=== PATIENT | female | born 1990 | race Caucasian/White ===

== ENCOUNTER 2019-05-13 16:53 | Outpatient (CLI) | payer OTHER, SELFPAY ==
[2019-05-13 17:18] LABS: Basophils Percent Auto 0.5 % (0.2-1.2); Eosinophils Absolute Auto 0.1 K/mm3 (0-0.3); Eosinophils Percent Auto 2.1 % (0-4.4); Hematocrit 39.4 % (37.0-47.0); Hemoglobin 13.2 g/dL (12.0-15.0); Immature Granulocyte Absolute 0.01 K/mm3 (0.00-0.031); Immature Granulocyte Percent A 0.2 % (0-0.5); Lymphocytes Percent Auto 40.1 % (18.3-44.2); Mean Corpuscular HGB Conc 33.5 g/dl (32-36); Mean Corpuscular Hemoglobin 29.9 pg (26-34); Mean Corpuscular Volume 89.3 fl (80-100); Mean Platelet Volume 11.1 fl (7.4-10.4); Monocytes Absolute Auto 0.7 K/mm3 (0.1-0.6); Monocytes Percent Auto 10.7 % (2.6-8.5); Neutrophils Absolute Auto 2.9 K/mm3 (1.3-6.7); Neutrophils Percent Auto 46.4 % (45.5-73.1); Platelet Count Result 197 k/mm3 (150-375); Red Blood Count 4.41 M/mm3 (4.2-5.4); Red Cell Distribution Width 12.7 % (11.5-14.5); White Blood Count 6.2 K/mm3 (4.5-10.0)
[2019-05-13 17:30] LABS: Alanine Aminotransferase 17 U/L (4-35); Albumin Level 4.6 g/dL (3.5-5.1); Alkaline Phosphatase 48 U/L (38-126); Aspartate Amino Transferase 21 U/L (14-36); Bilirubin,Total 0.4 mg/dL (0.2-1.3); Blood Urea Nitrogen 14 mg/dL (7-17); Calcium 9.1 mg/dL (8.4-10.2); Carbon Dioxide 25 mmol/L (22-30); Chloride 99 mmol/L (98-107); Estimated Glomerular Filt Rate > 60; Glucose 80 mg/dL (65-105); Potassium 3.6 mmol/L (3.4-5.0); Sodium 138 mmol/L (137-145)
[2019-05-13 17:46] LABS: Beta HCG Quantitative < 2.39 mIU/ML
== END 2019-05-13 16:54 | disposition home or self-care (01) ==
LOC: ANHLAB 16:55
PROVIDERS: PCP Family Medicine; Visit Provider Family Medicine
DX: R10.9 Unspecified abdominal pain (principal)
CPT/HCPCS: 36415; 80053; 84702; 85025

== ENCOUNTER 2019-05-27 06:50 | Outpatient (CLI) | payer OTHER, SELFPAY ==
--- NOTE | ~2019-05-27 | CT_ITS ---
EXAMINATION: CT abdomen pelvis w con EXAM DATE: 05/27/2019 07:32 INDICATION: Diffuse abdominal pain, nausea. TECHNIQUE: Spiral CT of the abdomen and pelvis was performed following intravenous injection of 100 m L Omnipaque 350. Axial, coronal and sagittal images were reviewed. The dose-length product (DLP) fo r this examination was 224.34 mGy-cm. The exposure was tailored according to patient size (auto mA e xposure control), and iterative reconstruction (ASIR) was used as additional dose reduction technique . There is no prior study for comparison. FINDINGS: There is a hypodensity in the left liver lobe measuring 1.1 cm consistent with a cyst. The spleen, pancreas, and adrenal glands are unremarkable. Gallbladder is unremarkable. No biliary obs truction. Portal and splenic veins are patent. Kidneys enhance symmetrically. There is no hydronep hrosis. There is IUD which appears to be centrally located within the endometrium, expected positio n. The bladder is unremarkable. There is no retroperitoneal or pelvic lymphadenopathy. Small umbi lical fat-containing hernia. The appendix is normal. The stomach and small bowel are unremarkable. There is expected amount of c olonic stool. No free intraperitoneal gas. The heart is normal in size. There are no pericardial or pleural effusions. The lung bases are unremarkable. There are no osteoblastic or osteolytic les ions identified. IMPRESSION: 1. Unremarkable CT abdomen pelvis examination. Reviewed, dictated and finalized at location B. [employer]
== END 2019-05-27 06:51 | disposition home or self-care (01) ==
LOC: ANHIMG 06:56
PROVIDERS: PCP Family Medicine; Visit Provider Family Medicine
DX: R10.2 Pelvic and perineal pain (principal)
CPT/HCPCS: 74177; Q9967

== ENCOUNTER 2019-08-06 00:25 | Outpatient (CLI) | payer OTHER, SELFPAY ==
[2019-08-06 16:18] LABS: SARS-CoV-2 RNA PCR Negative
== END 2019-08-06 00:26 | disposition home or self-care (01) ==
PROVIDERS: PCP Family Medicine; Visit Provider Internal Medicine Gastroenterology
DX: Z01.818 Encounter for other preprocedural examination (principal); Z11.59 Encounter for screening for other viral diseases; R10.32 Left lower quadrant pain
CPT/HCPCS: 87635; C9803; U0003

== ENCOUNTER 2019-08-09 00:32 | Day surgery (SDC) | payer OTHER, SELFPAY ==
[2019-08-04 13:01] VITALS: BMI 23.3
[2019-08-09 07:16] VITALS: BP 131/83; PULSE 95; RESP 16; TEMP 37.3; O2SAT 99; BMI 22.8
[2019-08-09] MEDS: LACTATED RINGERS 1,000 ML 150 ML IV CONT (07:33)
--- NOTE | 2019-08-09 08:20 | P.PNAN_ITS ---
Anes - Initial Pre Proc Eval Procedure: Operation Date: 08/09/19 09:00 Proposed Procedures p Colonoscopy - Abran Soriano MD Date/Time: 08/09/19 08:20 Surgeon: Abran Soriano MD Pre Op Diagnosis: Abdomin Pain Patient Data Age: 28 Gender: F Height: 5 ft 2 in Weight: 56.5 kg Last Vital Signs Temp 37.3 C 08/09/19 07:16 Pulse 95 08/09/19 07:16 Resp 16 08/09/19 07:16 BP 131/83 08/09/19 07:16 Pulse Ox 99 08/09/19 07:16 Allergies Allergy/AdvReac Type Severity Reaction Status Date / Time No Known Allergies Allergy Verified 08/09/19 07:14 Home Medications Medication Instructions Recorded Confirmed Type mr-ore-fgojv acid-lutein [Adult 200 tablet PO DAILY 08/04/19 08/09/19 History Multivitamin (w-lutein)] Patient hx anesthesia problems: none Family hx anesthesia problems: none [facility] Social History Social History Smoking status: Never smoker Alcohol intake: current Gender identity (if verbalized by the patient): Female Anes - Eval Final PreProcedure Day of Procedure 08/09/19 08:20 Patient weight: normal Heart: regular rate and rhythm Lungs: clear to auscultation Airway: Mallampati scale class II Neurological: alert and oriented Last oral intake: >/= 8 hours ASA classification: I Emergent: no Anesthetic plan: proceed Anesthesia type and monitoring: general GIVS and standard monitoring Informed Consent: The patient's anesthetic plan and its attendant risks and benefits were discussed with the patient/family/POA. Questions were solicited and answers provided to the satisfaction of the patient/family/POA.
--- NOTE | 2019-08-09 09:07 | PM.HPGS ---
History of Present Illness History of Present Illness Consent: Risks, benefits, and alternatives have been discussed and questions answered. Patient agrees to proceed with procedure. Chief complaint: Abdomin Pain Narrative: Georgina Ovalle is a 28 year old female with lower abdominal pain Review of Systems Constitutional: Constitutional: Denies headache(s) and Denies weakness Eyes: Eyes: Denies blurry vision ENT: Reports Normal hearing present, Denies headache(s) and Denies neck pain Cardiovascular: Cardiovascular: Denies chest pain and Denies dyspnea Respiratory: Respiratory: Denies dyspnea Gastrointestinal: Gastrointestinal: Reports no additional gastrointestinal complaints Genitourinary: Genitourinary: Denies dysuria Musculoskeletal: Musculoskeletal: Denies neck pain Integumentary/Breasts: Skin/Breast: Denies dry skin Neurologic: Reports Normal hearing present, Denies headache(s) and Denies weakness Psychiatric: Psychiatric: Denies anxiety Endocrine: Endocrine: Denies change in body appearance Hematologic/Lymphatic: Hematologic/Lymphatic: Denies easy bleeding Allergic/Immunologic: Allergic/Immunologic: Denies urticaria PMFSH Social History Social History Smoking status: Never smoker Alcohol intake: current Gender identity (if verbalized by the patient): Female Meds Home Medications and Allergies Home Medications Medication Instructions Recorded Confirmed Type mo-ofi-ripdi acid-lutein [Adult 200 tablet PO DAILY 08/04/19 08/09/19 History Multivitamin (w-lutein)] Allergies Allergy/AdvReac Type Severity Reaction Status Date / Time No Known Allergies Allergy Verified 08/09/19 07:14 Vital Signs Vital Signs - 24 hr 08/09/19 07:16 Temperature 99.1 F Pulse Rate 95 Respiratory Rate 16 Blood Pressure 131/83 Pulse Oximetry 99 Exam Const: General: comfortable and no acute distress HENMT: General nose exam: Normal nares present Eyes: General: appearance normal, both eyes and all related structures Neck: Neck: no JVD Resp: Auscultation: clear to auscultation bilaterally Cardio: Rate: regular rate Rhythm: regular rhythm GI: Inspection: non-distended GI Palp: Yes Soft to palpation Skin: General skin exam: normal color Neuro: General: gait normal Speech: normal speech Extrem: General: normal to inspection Psych: Mental Status: mental status grossly normal Assessment and Plan Assessment and plan (1) Abdominal pain: Qualifiers: Abdominal location: left lower quadrant Qualified Code(s): R10.32 - Left lower quadrant pain Code(s): R10.9 - Unspecified abdominal pain Status: Acute Assessment and Plan: wor up thus far negative, will do a colonoscopy
[2019-08-09 09:25] VITALS: BP 110/66; PULSE 76; RESP 20; O2SAT 98
[2019-08-09 09:35] VITALS: BP 112/77; PULSE 69; RESP 17; O2SAT 100
[2019-08-09 09:45] VITALS: BP 111/78; PULSE 64; RESP 18; O2SAT 99
== END 2019-08-09 09:51 | disposition home or self-care (01) ==
PROVIDERS: PCP Family Medicine; Visit Provider Internal Medicine Gastroenterology
PROC: 0DJD8ZZ Inspection of Lower Intestinal Tract, Via Natural or Artificial Opening Endoscopic (ICD-10-PCS; CPT 45378; principal; 2019-08-09 09:00)
DX: R10.32 Left lower quadrant pain (principal)
CPT/HCPCS: 45378; J2704; J7120

== ENCOUNTER 2021-11-21 15:51 | Emergency (ER) | payer OTHER, SELFPAY ==
--- NOTE | ~2021-11-21 | CT_ITS ---
EXAMINATION: CT abdomen pelvis w con DATE: 11/21/2021 17:42 INDICATION: Abdominal pain. Nonreducible umbilical hernia. TECHNIQUE: Computed tomography (CT) of the abdomen and pelvis was performed with 100 mL Omnipaque-350 intravenous contrast. Automated exposure control and iterative reconstruction technique were employe d. The dose-length product was 244.35 mGy-cm. COMPARISON: 05/27/2019 FINDINGS: Lung bases are clear. Heart size is normal. No pericardial or pleural effusion. 1.5 cm cyst in the le ft hepatic lobe. Gallbladder, spleen, pancreas, bilateral adrenal glands and kidneys are normal. Inte rval increase in size of a previously 1.4 x 1.3 x 1.2 cm now 2.2 x 1.6 x 1.9 cm fat-containing umbili reinier hernia which extends to a 4 mm diameter orifice. Bowels including the appendix are normal. Bladde r is normal. T-shaped IUD in expected position within the anteverted uterus. 2.5 is 0.9 cm peripheral ly enhancing likely partially collapsed corpus luteum cyst at the left ovary. Right adnexa is unremar kable. Small amount of likely physiologic free fluid in the cul-de-sac. No abscess or free intraperit quiroga gas. No pathologically enlarged abdominal or pelvic lymphadenopathy. Bones are unremarkable. . IMPRESSION: 1. Interval increase in size of a still small fat-containing umbilical hernia. 2. Partially collapsed left ovarian corpus luteum cyst and small amount of likely physiologic free fl uid in the cul-de-sac. 2. IUD in expected position. Reviewed, dictated and finalized at location A. IMPRESSION: 1. Interval increase in size of a still small fat-containing umbilical hernia. 2. Partially collapsed left ovarian corpus luteum cyst and small amount of like ly physiologic free fluid in the cul-de-sac. 2. IUD in expected position.
[2021-11-21 15:57] VITALS: BP 177/99; PULSE 67; RESP 16; TEMP 36.6; O2SAT 100
--- NOTE | 2021-11-21 16:10 | ED.ABDPAIN ---
HPI - Abdominal Pain General Chief Complaint: Abdominal Pain Stated Complaint: abd pain Time Seen by Provider: 11/21/21 15:54 History of Present Illness HPI narrative: 31-year-old female presented the emergency room complaints of umbilical pain. Patient states that she has had reducible umbilical hernia for the last 2 months, but recently has been unable to reduce it. Patient is also complaining of nausea fatigue and headaches. Patient states that she has bowel movements approximately every other day. Admits to flatulence. Denies fever diarrhea. States that she had a colonoscopy several months ago and it was normal Related Data Home Medications Medication Instructions Recorded Confirmed multivit with min-folic 200 tablet PO DAILY 08/04/19 07/03/21 acid-lutein 200 mcg-137.5 mcg chewable tablet (Adult Multivitamin (w-lutein)) acetaminophen-pamabrom 500 mg-25 1 tablet PO Q6H PRN 11/21/21 mg tablet (Midol) Allergies Allergy/AdvReac Type Severity Reaction Status Date / Time No Known Allergies Allergy Verified 11/21/21 13:00 Review of Systems Review of Systems: CONSTITUTIONAL: Denies fever, chills, or sweats. EYES: Denies visual changes, redness, or discharge. ENT: Denies rhinorrhea, congestion, sore throat, or otalgia. CARDIOVASCULAR: Denies chest pain, palpitations, or edema. RESPIRATORY: Denies cough or dyspnea. GASTROINTESTINAL: Reports abdominal pain, nausea GENITOURINARY: Denies dysuria or hematuria. SKIN: Denies rash or itching. MUSCULOSKELETAL: Denies back pain, joint pain, or myalgia. NEUROLOGIC: Denies headache, numbness, dizziness, or weakness. PSYCHIATRIC: Denies anxiety or depression. [facility] Social History Social History Smoking status: Never smoker Second hand tobacco smoke exposure: No Alcohol intake: current Drinks per week: 2 Substance use: never Substance use type: does not use Gender identity (if verbalized by the patient): Female Spiritual care concerns: No Agree to blood products: Yes Exam Narrative: GENERAL: Well-appearing, well-nourished, no physical limitations, and in no acute distress. HEAD: Normocephalic, atraumatic. EYES: Conjunctivae normal, PERRLA and EOMI. CHEST: Clear to auscultation. No respiratory distress. No wheezes rales or rhonchi. No tenderness. HEART: Regular rate and rhythm. No murmur heard. Normal peripheral pulses. ABDOMEN: Soft, nontender, nondistended, normal active bowel sounds. Nonreducible umbilical hernia BACK: No CVA tenderness; EXTREMITIES: Normal range of motion. No edema. No clubbing or cyanosis SKIN: Warm, dry, no rash. No noted wounds NEURO: No focal deficits. Alert and oriented x3. MAEW. CN's II-XI intact bilaterally, normal gait PSYCH: Cooperative. Normal mood and affect. Course Course Emergency Course: 1645: MD Franz at bedside to evaluate patient. He is willing to see patient in his office next week. Vital Signs Vital signs: Vital Signs Temperature 36.6 C 11/21/21 15:57 Pulse Rate 67 11/21/21 15:57 Respiratory Rate 16 11/21/21 15:57 Blood Pressure 177/99 H 11/21/21 15:57 Pulse Oximetry 100 11/21/21 15:57 Oxygen Delivery Room Air 11/21/21 15:57 Temperature 36.6 C 11/21/21 15:57 Pulse Rate 67 11/21/21 15:57 Respiratory Rate 16 11/21/21 15:57 Blood Pressure 177/99 H 11/21/21 15:57 Pulse Oximetry 100 11/21/21 15:57 Oxygen Delivery Room Air 11/21/21 15:57 MDM - Abdominal Pain MDM Narrative Medical decision making narrative: 31-year-old female came in with abdominal pain, sent in from her primary care for evaluation of an umbilical hernia. CT scan showed a fat-containing umbilical hernia. Remainder of her work-up was unremarkable. Dr. Franz was at the bedside to evaluate the patient, and he discussed with the patient to follow-up with his office next week. Lab Data Labs: [facility] Bedside Result Neg
[2021-11-21 16:19] LABS: Basophils Percent Auto 0.4 % (0.2-1.2); Eosinophils Absolute Auto 0.2 K/mm3 (0-0.3); Eosinophils Percent Auto 2.1 % (0-4.4); Hematocrit 43.2 % (37.0-47.0); Hemoglobin 14.5 g/dL (12.0-15.0); Immature Granulocyte Absolute 0.02 K/mm3 (0.00-0.031); Immature Granulocyte Percent A 0.3 % (0-0.5); Lymphocytes Absolute Auto 2.26 K/mm3 (0.9-3.2); Lymphocytes Percent Auto 31.3 % (18.3-44.2); Mean Corpuscular HGB Conc 33.6 g/dl (32-36); Mean Corpuscular Hemoglobin 30.2 pg (26-34); Mean Platelet Volume 10.5 fl (7.4-10.4); Monocytes Absolute Auto 0.6 K/mm3 (0.1-0.6); Monocytes Percent Auto 7.9 % (2.6-8.5); Neutrophils Absolute Auto 4.2 K/mm3 (1.3-6.7); Platelet Count Result 218 k/mm3 (150-375); Red Cell Distribution Width 13.2 % (11.5-14.5); White Blood Count 7.2 K/mm3 (4.5-10.0)
[2021-11-21 16:20] LABS: Appearance Urine Clear (Clear); Bilirubin Urine Negative (Negative); Blood Urine 1+ (Negative); Color Urine Yellow (Yellow); Glucose Urine UA Negative (Negative); Ketones Urine Negative (Negative); Leukocyte Esterase Ur Negative LEU/UL (Negative); Nitrate Urine Negative (Negative); Protein Urine Negative (Negative); Specific Grav Ur >= 1.030 (1.001-1.035); Urobilinogen Urine 0.2 mg/dL (<2.0); pH Urine 5.5 (5.0-9.0)
[2021-11-21 16:23] LABS: Bacteria Urine Trace /hpf; Mucus Urine Rare /lpf; RBC Urine 0-2 /hpf (0-2); Squamous Epithelial Cell Urine Occasional /hpf (Few); WBC Urine 0-3 /hpf
[2021-11-21 16:24] LABS: Add Urine Microscopic? YES
[2021-11-21 16:30] LABS: Alanine Aminotransferase 25 U/L (6-35); Albumin Level 5.2 g/dL (3.5-5.1); Alkaline Phosphatase 59 U/L (38-126); Anion Gap 13 mmol/L (8-16); Aspartate Amino Transferase 28 U/L (14-36); Bilirubin,Total 0.6 mg/dL (0.2-1.3); Blood Urea Nitrogen 13 mg/dL (7-17); Calcium 9.4 mg/dL (8.4-10.2); Carbon Dioxide 26 mmol/L (22-30); Chloride 100 mmol/L (98-107); Estimated CRCL calculation 85 ml/min; Estimated Glomerular Filt Rate > 60; Glucose 137 mg/dL (65-110); Potassium 3.5 mmol/L (3.4-5.0); Sodium 139 mmol/L (137-145)
[2021-11-21 16:45] VITALS: BP 160/100; PULSE 82; RESP 18; TEMP 36.8; O2SAT 98
[2021-11-21 18:13] VITALS: BP 160/98; PULSE 80; RESP 16; O2SAT 100
--- NOTE | 2021-11-22 16:36 | PM.CNGS ---
Assessment and Plan Assessment and plan (1) Incarcerated umbilical hernia: Code(s): K42.0 - Umbilical hernia with obstruction, without gangrene Status: Acute Assessment and Plan: pain better now in ED, CT reviewed, will setup for urgent repair as outpt, light activity restrictions until repair History of Present Illness Consult details Consult date: 11/21/21 Reason for consult: hernia Requesting physician: Kenna Martinez DO Narrative: The patient is a 31 y/o F presenting to ED c/o worsening periumbilical abdominal pain. Pt has known umbilical hernia for a few yrs but recently has been becoming larger and more symptomatic. Pt reports hernia is popped out all the time. Pt reports pain has been pretty constant and severe over last few wks. Pt also c/o nausea and constipation over same time span. Review of Systems Constitutional: Constitutional: Denies anorexia, Denies chills, Denies fatigue, Denies fever(s), Denies lethargy, Denies poor appetite, Denies weakness, Denies weight gain and Denies weight loss Eyes: Eyes: Reports no additional eye complaints ENT: Reports system reviewed and no additional complaints, except as documented Cardiovascular: Cardiovascular: Reports no additional cardiovascular complaints Respiratory: Respiratory: Reports no additional respiratory complaints Gastrointestinal: Gastrointestinal: Reports as per HPI, Reports abdominal pain, Reports bloating, Reports constipation, Reports GI cramping, Reports nausea and Denies vomiting Genitourinary: Genitourinary: Reports no additional female genitourinary complaints Musculoskeletal: Musculoskeletal: Reports no additional musculoskeletal complaints Integumentary/Breasts: Skin/Breast: Reports system reviewed and no additional complaints, except as docu Neurologic: Reports system reviewed and no additional complaints, except as documented Psychiatric: Psychiatric: Reports no additional psychiatric complaints Endocrine: Endocrine: Reports no additional endocrine complaints Hematologic/Lymphatic: Hematologic/Lymphatic: Reports no additional hematologic/lymphatic complaints Allergic/Immunologic: Allergic/Immunologic: Reports no additional allergic/immunologic complaints PMFSH Social History Social History Smoking status: Never smoker Second hand tobacco smoke exposure: No Alcohol intake: current Drinks per week: 2 Substance use: never Substance use type: does not use Gender identity (if verbalized by the patient): Female Spiritual care concerns: No Agree to blood products: Yes Meds Home Medications and Allergies Home Medications Medication Instructions Recorded Confirmed Type multivit with min-folic 200 tablet PO DAILY 08/04/19 07/03/21 History acid-lutein 200 mcg-137.5 mcg chewable tablet (Adult Multivitamin (w-lutein)) acetaminophen-pamabrom 500 mg-25 1 tablet PO Q6H PRN 11/21/21 History mg tablet (Midol) Allergies Allergy/AdvReac Type Severity Reaction Status Date / Time No Known Allergies Allergy Verified 11/21/21 13:00 Vital Signs Vital Signs - 24 hr 11/21/21 16:45 11/21/21 18:13 Temperature 36.8 C Pulse Rate 82 80 Respiratory Rate 18 16 Blood Pressure 160/100 H 160/98 H Pulse Oximetry 98 100 Exam Const: General: cooperative, healthy appearing, comfortable and no acute distress Nutritional Appearance: average body habitus Orientation/consciousness: patient oriented x3 HENMT: Head: normal to inspection, normocephalic and atraumatic Eyes: General: appearance normal, both eyes and all related structures Neck: Neck: normal visual inspection, full ROM and no lymphadenopathy Chest: Chest palpation & inspection: normal inspection of the chest Resp: Effort & Inspection: normal respiratory effort Auscultation: clear to auscultation bilaterally Cardio: Rate: regular rate Rhythm: regular rhythm G
== END 2021-11-21 18:13 | disposition home or self-care (01) ==
PROVIDERS: Emergency Provider Nurse Practitioner Family; PCP Family Medicine
DX: K42.0 Umbilical hernia with obstruction, without gangrene (principal); Z97.5 Presence of (intrauterine) contraceptive device; N83.12 Corpus luteum cyst of left ovary
CPT/HCPCS: 36415; 74177; 80053; 81001; 81025; 85025; 99284; Q9967

== ENCOUNTER 2021-11-26 00:45 | Day surgery (SDC) | payer OTHER, SELFPAY ==
--- NOTE | 2021-11-25 14:50 | PC.NURSE ---
Report to the Outpatient Waiting Room, entrance under the green pavilion located off [facility], at time __0630 on date _11/26/21 . OR Time: . - You and your visitor will be asked to self-screen and do not enter if you have any COVID symptoms. - Only one visitor and NO children visitors are allowed at this time. - The patient visitor is requested to leave or wait in car when not with patient due to restrictions. - A mask is required within the hospital. Patients may have clear liquids (water, carbonated beverages, clear teas, apple juice) until 3 hours prior to surgery with a maximum of 20 ounces. - No food from midnight until time of surgery - Infants may have breast milk until 4 hours before surgery, infant formula 6 hours prior to surgery. - Children will be allowed to drink immediately following surgery. If applicable, please bring a bottle or sippy cup to assist with drinking. Juice, water, soda, and popsicles are readily available. For infants on formula, please bring formula the day of surgery. Pacifiers are allowed. Take the following medications with a SIP of water the morning of surgery: __NONE Medications to discontinue per physician NONE Date to take last dose Please no make-up, nail pashto, hairspray, perfume, deodorant, or body powder the day of surgery. No jewelry (including any body piercings) or valuables the day of surgery, leave them at home. Please take a shower or bath the night before, or the morning of, surgery with an antibacterial soap. Wear comfortable, loose fitting clothing. Children are encouraged to wear pajamas. - Jewelry must be removed prior to entering the operating room. Rings and piercings that are not removed may be cut off. - The hospital will not accept responsibility for valuables. - Please leave all valuables, including medications, at home the day of surgery. HIBICL[employer] SHOWER MORNING OF SURGERY If you are going home after surgery, a licensed bottom hoop driver must drive you home. - NO public transportation without another adult. - We recommend that an adult stay with you for 24 hours following discharge. - We also recommend that you do not drive, make important decision, drink alcoholic beverages, or take any drugs that were not prescribed by your health care provider for at least 24 hours after your discharge time. For Pediatric surgeries, we recommend two adults accompany the child home (only one inside the building at this time). Follow any additional instructions given to you from your surgeon. If you or anyone in your household have experienced Covid symptoms in the past week, please notify your surgeon or the nurse liaison at the phone number below for possible testing. Telephone instructions given to _PATIENT and asked if any additional questions and then verbalized understanding. Patient advised to call surgeon office or pre surgery nurse liaison [phone] if any additional questions.
[2021-11-25 14:52] VITALS: BMI 22.6
[2021-11-26] VITALS (7 sets, daily range): BP systolic 105–125; BP diastolic 58–98; PULSE 50–99; RESP 12–18; TEMP 36.2; O2SAT 99–100
[2021-11-26] MEDS: ACETAMINOPHEN 500 MG TABLET 1000 MG PO (07:20)
[2021-11-26] MEDS: KETOROLAC 15 MG/ML VIAL (*BKC) IV PUSH (07:20)
[2021-11-26] MEDS: LACTATED RINGERS 1,000 ML 30 ML IV CONT ×2 (07:30→10:07)
--- NOTE | 2021-11-26 07:59 | WPDANESEPPF ---
Anes - Initial Pre Proc Eval Procedure: Operation Date: 11/26/21 08:30 Proposed Procedures p Open Incarcerated Umbilical Hernia Repair with Mesh - Caitlyn Franz MD Date/Time: 11/26/21 07:59 Surgeon: Caitlyn Franz MD Pre Op Diagnosis: incarcerated umbilical hernia Patient Data Age: 31 Gender: F Height: 1.6 m Weight: 55.75 kg Allergies Allergy/AdvReac Type Severity Reaction Status Date / Time No Known Allergies Allergy Verified 11/25/21 14:40 Home Medications Medication Instructions Recorded Confirmed Type multivit with min-folic 200 tablet PO DAILY 08/04/19 11/25/21 History acid-lutein 200 mcg-137.5 mcg chewable tablet (Adult Multivitamin (w-lutein)) acetaminophen-pamabrom 500 mg-25 1 tablet PO Q6H PRN Pain 11/21/21 11/25/21 History mg tablet (Midol) acetaminophen 500 mg capsule 1,000 mg PO Q6H PRN Pain 11/25/21 11/25/21 History Patient hx anesthesia problems: none Family hx anesthesia problems: none Results Review: All pre-operative results and documents have been reviewed as part of the pre-operative evaluation. [facility] Social History Social History Smoking status: Never smoker Second hand tobacco smoke exposure: No Alcohol intake: current Drinks per week: 2 Substance use: never Substance use type: does not use Living arrangements: with family Gender identity (if verbalized by the patient): Female Spiritual care concerns: No Agree to blood products: Yes Anes - Eval Final PreProcedure Day of Procedure 11/26/21 07:59 Patient weight: normal Heart: regular rate and rhythm Lungs: clear to auscultation Airway: Mallampati scale class II Neurological: alert and oriented Last oral intake: >/= 8 hours ASA classification: I Emergent: no Anesthetic plan: proceed Anesthesia type and monitoring: general LMA and standard monitoring Results Review: All pre-operative results and documents have been reviewed as part of the pre-operative evaluation. Informed Consent: The patient's anesthetic plan and its attendant risks and benefits were discussed with the patient/family/POA. Questions were solicited and answers provided to the satisfaction of the patient/family/POA.
--- NOTE | 2021-11-26 08:22 | WPDHPUPDATE1 ---
History and Physical Update Update Date/Time: 11/26/21 08:22 History and Physical has been reviewed, including an updated exam of the patient. There are NO changes in the patient's condition. Risks, benefits, and alternatives have been discussed and questions answered. Patient agrees to proceed with procedure.
--- NOTE | 2021-11-26 08:45 | PM.IMHP ---
H&P: HPI History of Present Illness Date/Time: 11/26/21 08:45 Chief Complaint: Pain Narrative: 29 y/o G0 here for umbilical hernia repair. I was called yesterday afternoon by Dr. Franz, who informed me he would be repairing her umbilical hernia today. She has cyclic pelvic pain and had wondered whether this might be a good time for diagnostic laparoscopy. Review of Systems Review of Systems: All systems reviewed & are unremarkable except as noted in HPI and below PMFSH Surgical History Surgical History History of knee surgery Social History Social History Smoking status: Never smoker Second hand tobacco smoke exposure: No Alcohol intake: current Drinks per week: 2 Substance use: never Substance use type: does not use Living arrangements: with family Gender identity (if verbalized by the patient): Female Spiritual care concerns: No Agree to blood products: Yes Meds Home Medications and Allergies Home Medications Medication Instructions Recorded Confirmed Type multivit with min-folic 200 tablet PO DAILY 08/04/19 11/25/21 History acid-lutein 200 mcg-137.5 mcg chewable tablet (Adult Multivitamin (w-lutein)) acetaminophen-pamabrom 500 mg-25 1 tablet PO Q6H PRN Pain 11/21/21 11/25/21 History mg tablet (Midol) acetaminophen 500 mg capsule 1,000 mg PO Q6H PRN Pain 11/25/21 11/25/21 History Allergies Allergy/AdvReac Type Severity Reaction Status Date / Time No Known Allergies Allergy Verified 11/25/21 14:40 Exam Const: Orientation/consciousness: patient oriented x3 Other: Well-developed, well-nourished female in no acute distress. Neck: Thyroid: thyroid normal Lymphatic: no lymphadenopathy noted (in neck, axilla or inguinal nodes) Resp: Effort & Inspection: normal respiratory effort Auscultation: clear to auscultation bilaterally Cardio: Rate: regular rate Rhythm: regular rhythm Heart sounds: S1 normal heart sound present and S2 normal heart sound present GI: Other: ABD: Soft, nontender, nondistended. No guarding or rebound tenderness. No hepatosplenomegaly. : General: Yes no CVA tenderness Other: External genitalia: normal female hair distribution, without lesion. Urethral meatus: no lesion, non prolapsed. Bladder: no mass, nontender Vagina: well-estrogenized, without lesion or discharge. No cystocele or rectocele. Cervix: no lesion or discharge. IUD strings noted. Uterus: small, anteverted, freely mobile, nontender Adnexa: no mass or tenderness. Anus/perineum: no lesions, nontender Back/Spine/Pelvis: Back: no CVA tenderness Skin: General skin exam: normal color and no rashes or lesions noted Neuro: General: patient oriented x3 Extrem: Other: Extremities: nontender with no edema Psych: Mental Status: mental status grossly normal Affect: normal affect Assessment and Plan Assessment and plan (1) Pelvic pain: Code(s): R10.2 - Pelvic and perineal pain Status: Acute Assessment and Plan: A: Cyclic pelvic pain. P: Since she is having umbilical hernia repair, it is a good time for concurrent diagnostic laparoscopy and possible cautery of any endometriosis implants. She understands risks of surgery to include risks of anesthesia, risks of pain, infection, bleeding, blood products, thromboembolic phenomena and damage to adjacent structures such as bowel, bladder, ureters, blood vessels and nerves. She understands all these risks and elects to proceed with surgery.
--- NOTE | 2021-11-26 08:48 | WPDHPUPDATE1 ---
History and Physical Update Update Date/Time: 11/26/21 08:48 History and Physical has been reviewed, including an updated exam of the patient. There are NO changes in the patient's condition. Risks, benefits, and alternatives have been discussed and questions answered. Patient agrees to proceed with procedure.
[2021-11-26] MEDS: ceFAZolin 2 GM/D5W 50 ML 2 GM/50 ML BAG IVPB (08:56)
--- NOTE | 2021-11-26 09:32 | W.PM.PROC2 ---
Procedure Note - Detailed Date of Procedure 11/26/21 Pre-op Diagnosis Cyclic pelvic pain Post-op Diagnosis Same Procedure Performed Diagnostic laparoscopy Surgeon Dereje Patterson MD Anesthesia General Findings Normal-appearing pelvis. Uterus, bilateral tubes and ovaries, anterior and posterior cul de sac, bilateral round and uterosacral ligaments all unremarkable. Description of Procedure The patient was taken to the operating room where general endotracheal anesthesia was administered. She was prepared and draped in the usual sterile fashion in the dorsal lithotomy position. The bladder was drained with a red rubber catheter. A sterile speculum was inserted into the vagina and the anterior lip of the cervix was grasped with a single-toothed tenaculum. The acorn uterine manipulator was placed. The speculum was withdrawn. Gloves were changed and attention was turned to the abdomen. Dr. Franz had placed a 5 mm laparoscopic port through an umbilical incision. Pneumoperitoneum was administered using carbon dioxide gas. A survey of the pelvis and abdomen yielded the findings noted above. Hemostasis was excellent. Vaginal instrumentation was withdrawn and hemostasis was excellent here. The procedure was turned over to Dr. Franz for umbilical hernia repair. Estimated Blood Loss 5 Drains No Packing No Pathology None sent Complications None Condition Stable
[2021-11-26] MEDS: ONDANSETRON INJ 4 MG/2 ML VIAL IV PUSH (10:26)
--- NOTE | 2021-11-26 10:29 | P.OP_ITS ---
Procedure Note - Detailed Date of Procedure 11/26/21 Pre-op Diagnosis incarcerated umbilical hernia Post-op Diagnosis Same Procedure Performed repair of incarcerated umbilical hernia with mesh Surgeon Caitlyn Franz MD Anesthesia General Indications 31 y/o F c incarcerated umbilical hernia Findings incarcerated umbilical hernia c preperitoneal fat, omentum Description of Procedure The patient was taken to the operating room placed in the supine position. After adequate induction of general anesthesia, the patient was prepped and draped in the normal sterile fashion. A time-out was then done to verify the patient's identity, as well as the procedure being performed. I began by localizing the area around the umbilicus. I then made a curvilinear incision in the infraumbilical fold. This was taken down to level fascia. I then used an 5 mm optiview trocar to gain access into the periotneal cavity. The abdomen was then insufflated with CO2 gas. I then placed 5 mm camera through this port site. Dr. Patterson then performed a diagnostic pelvic laparoscopy, operative report for details. Once he was completed with his procedure, the abdomen was desufflated and the trocar was removed. I then was able to bluntly dissect around the umbilicus. I then carefully dissected the umbilicus off the underlying fascia. I then noted a small defect with incarcerated preperitoneal fat and omentum. I was able to mobilize the incarcerated tissue and reduce it back into the abdominal cavity. This left an approximately 2 cm defect. I then placed a 4.3 cm round piece of ventralex mesh in the underlay position. This was noted to have good, wide local coverage of the defect. I then closed this defect primarily with interrupted 0 Ethibond suture over the underlay mesh repair. I then reapproximated the umbilicus to the fascia with a 3 0 Vicryl U- stitch. The subcutaneous tissue was then closed with 3 0 Vicryl suture. The skin was closed with 4 0 Monocryl subcuticular suture. Dermabond was then p laced on the wound. The patient tolerated the procedure well was extubated in the operating room postop. She will be transferred to the recovery room in stable condition. Implants 4.3 cm ventralex mesh in underlay position Estimated Blood Loss 10 Drains No Packing No Pathology None sent Complications No immediate complications Condition Stable Disposition PACU [facility] Billing Surgery - Charge Forward: Surgery Billing
[2021-11-26] MEDS: fentaNYL CITRATE INJ (*CRX) 100 MCG/2 ML VIAL 25 MCG IV PUSH (10:34)
[2021-11-26] MEDS: oxyCODONE HCL (*CRX) 5 MG TAB IR PO (11:02)
== END 2021-11-26 11:53 | disposition home or self-care (01) ==
PROVIDERS: Obstetrics & Gynecology; PCP Family Medicine; Visit Provider Surgery
PROC: (CPT 49653; principal; 2021-11-26 08:30)
PROC: (CPT 49320; 2021-11-26 08:30)
DX: R10.2 Pelvic and perineal pain (principal); K42.0 Umbilical hernia with obstruction, without gangrene
CPT/HCPCS: 49653; A9270; C1781; J0690; J1100; J1885; J2250; J2405; J2704; J2710; J3010; J7120

== ENCOUNTER 2024-04-25 08:03 | Outpatient (CLI) | payer OTHER, SELFPAY ==
--- OUTSIDE RECORDS SUMMARY | 2024-04-25 08:18 | XMS_ITS | Encounter Summary ---
Author Organization [facility] Address [address] [place] [address]. [place], [place] [address] [place] [address] Care Team Providers Care Cafeteria Attendant Name Role Phone Colton Merino Primary Care Provider [phone] Encounter Details Date Type Department Care Team (Late st Contact Info) Description 11/27/[address] [facility] CONVERSION [address] [place] [address] , Generic ConversionMD Social History Tobacco Use Types Packs/Day Years Used Date Smoking Tobacco: Never Assessed Comments Unknown Sex and Gender Information Value Date Recorded Sex Assigned at Not on file Legal Sex Female 8:37 PM CDT Gender Identity Not on file Sexual Orientation Not on file documented as of this encounter Plan of Treatment Upcoming Encounters Date Type Department Care Team (Late st Contact Info) Description 12/26/2024 8:20 AM CDT Office Visit [facility] Family & Internal Medicine [facility] [address] [place] [address] [place] [address] [place] [address] documented as of this encounter Visit Diagnoses Not on filedocumented in this encounter Care Teams Cafeteria Attendant Relationship Specialty [place] [address] [place] [address] PCP - General Physician Bench Worker Apprentice Medical 01/20/24 documented as of this encounter
--- OUTSIDE RECORDS SUMMARY | 2024-04-25 08:18 | XMS_ITS | Continuity of Care Document ---
Author Organization [facility] Address [address] [place] [address] Insurance Providers Payer Plan Claims Address Claims Phone Policy Number Group Number Relation Employer Guarantor Name Guarantor Guarantor Address Guarantor Phone [facility] [id number] Self Georgina Thacker 1990 [id number] [place] [address] [facility] [id number] Self Georgina Thacker 1990 [address] [place] [address] Problems Unknown Problems Results No Results Allergies, adverse reactions, alerts No known allergies and adverse reactions Medications No administered medications reported Vital Signs Date Vital Result Comment 03/10/2023 Body Height [id number] m Body Weight 58.573279664591 kg Body Mass Index 22.67 kg/m2 Social History No smoking Hx information available
--- OUTSIDE RECORDS SUMMARY | 2024-04-25 08:19 | XMS_ITS | Clinical Summary ---
Author Organization [facility] Address [address] [place] [address]. [place] [address] [place] [address] Care Team Providers Care General Car Yard Supervisor Name Role Phone Colton Merino Primary Care Provider [phone] Allergies No known active allergies Medications multi vitamin/minerals (THERA-M ENHANCED) tablet Take 1 tablet by mouth daily. Active Resolved Problems Problem Noted Date Diagnosed Date Resolved Date No known health problems 10/10/201206/2023 Encounters Date Type Department Care Team Description 01/25/2024 9:20 AM CDT Office Visit [facility] Family & Internal Medicine [address] [address] Colton Merino PA New Patient (Establish care/); Physical 01/25/2024 Travel from Last 3 Months Immunizations Name Administration Dates Next Due Dtap (Generic) 09/23/1996, 5,04/26/1993,1992,1992 Hepatitis B 04/26/1993,1992,1992 Hib Vaccine, Prp-Omp 04/25/1994,04/26/18 94,02/14/1993,1992 Influenza (Afluria - Preserv ative Free) 01/04/2024 Influenza Adult (Generic) 03/16/2016 MMR (Generic) 09/23/1996,04/25/1994 Opv 09/23/1996, 5,02/14/1993,1992 Td (Tenivac) preservative free 09/02/2006 Family History Medical History Relation Comments high cholesterol Father Relation Status Comments Father Alive Mother Alive Social History Tobacco Use Types Packs/Day Years Used Date Smoking Tobacco: Never Smokeless Tobacco: Never Tobacco Cessation:Counseling Given: No Alcohol Use Standard Drinks/Week Comments Yes 11.7 (1 standard drink = 0.6 oz pure alcohol) one glass of wine a night PHQ-2 Answer Date Recorded Patient Health Questionnaire-2 Score 0 01/25/2024 Comments No Sex and Gender Information Value Date Recorded Sex Assigned at Not on file Legal Sex Female 8:37 PM CDT Gender Identity Not on file Sexual Orientation Not on file Last Filed Vital Signs Vital Sign Reading Time Taken Comments Blood Pressure 152/94 01/25/2024 9:30 AM CDT Pulse 54 01/25/2024 9:24 AM CDT Temperature 36.8 ??C (98.2 ??F) 01/25/2024 9:24 AM CD T Respiratory Rate 16 01/25/2024 9:24 AM CDT Oxygen Saturation 100% 01/25/2024 9:24 AM CDT Inhaled Oxygen Concentration - - Weight 57.6 kg (127 lb) 01/25/2024 9:24 AM CDT Height 160 cm (5' 3 ) 01/25/2024 9:24 AM CDT Body Mass Index 22.5 01/25/2024 9:24 AM CDT Plan of Treatment Upcoming Encounters Date Type Department Care Team (Late st Contact Info) Description 12/26/2024 8:20 AM CDT Office Visit [facility] Family & Internal Medicine [facility] [id number] [place] [address] Colton Merino PA [address] [place] [id number] Health Maintenance Due Date Last Done Comments Cervical Cancer Screening Pap Smear (Age 30 to 64) Every 3 Years 1992 DTaP, Tdap and Td Vaccines (6 - Tdap) 09/03/2006 09/02/2006, 09/23/1996, 04/25/1994, Additional history exists Cervical Cancer Screening Pap with HPV Testing (Age 30 to 64) Every 5 Years 2022 PHQ-2 (Physician [place]) 03/30/2024 01/25/2024 Annual Physical 01/24/2025 01/25/2024 COVID-19 Vaccine ( season) 2025 Postponed from 11/29/2023 (Patient Refused) Cervical Cancer Screening with HPV 01/24/2025 Postponed from 2022 (Going to Outside Clinic) PHQ-2 (Physician [place]) 01/24/2025 01/25/2024 Hepatitis C 01/24/2054 Postponed from 2010 (Patient Refused) Hepatitis B Vaccines Completed 04/26/1993, 1992, 1992 Influenza Adult Completed 01/04/2024, 03/16/2016 HPV Vaccines Aged Out No longer eligi ble based on patient's age to complete this topic Meningococcal B Vaccine Aged Out No l onger eligible based on patient's age to complete this topic Meningococcal Vaccine Aged Out No timmy hossein eligible based on patient's age to complete this topic Pneumococcal Vaccine: Pediatrics (0 to 5 Years) and At-Risk Patients (6 to 64 Years) Aged Out No longer eligible based on patient's age to complete this topic RSV Immunizations Under 20 Months Aged Out No longer eligible based on patient's age to complete this topic Insurance [facility] Care Teams General Car Yard Supervisor Relationship Specialty [place] [address] [place] [address] PCP - General Physician Pa[employer]r [facility] 01/20/24
== END 2024-04-25 08:04 | disposition home or self-care (01) ==
PROVIDERS: PCP Physician Assistant; Visit Provider Obstetrics & Gynecology
DX: N83.8 Other noninflammatory disorders of ovary, fallopian tube and broad ligament (principal)
CPT/HCPCS: 36415; 86850; 86900; 86901

== ENCOUNTER 2024-04-27 02:28 | Day surgery (SDC) | payer OTHER, SELFPAY ==
[2024-04-19 10:17] VITALS: BMI 22.7
--- NOTE | 2024-04-19 10:25 | PC.NURSE ---
Report to the Outpatient Waiting Room, entrance under the green pavilion located off [facility], at time _1100_ on date _06-59-1930_. Planned Procedure Time: _1pm_.? Time changes happen often and if your time is changed the preop area will call you the afternoon before. - You and your visitor will be asked to self-screen and do not enter if you have any COVID symptoms. Please call surgeon if you need to reschedule. - A mask is optional within the hospital at this time. Patients may have clear liquids (water, carbonated beverages, clear teas, apple juice) until 3 hours prior to surgery with a maximum of 20 ounces. - No food from midnight until time of surgery and no smoking. This includes no chewing gum, candy or mints. Take only the following medications with a SIP of water on the morning of surgery: ___Sertraline___ DO NOT STOP ANY OF YOUR OTHER PRESCRIPTION MEDICATIONS PRIOR TO SURGERY EXCEPT THE FOLLOWING Medications to discontinue per physician __Multivitamin___ Date to take last fbbi___[id number]____ Please no make-up, nail albanian, hairspray, perfume, deodorant, or body powder the day of surgery.? No jewelry (including any body piercings) or valuables the day of surgery, leave them at home.? Please take a shower or bath the night before, or the morning of, surgery with an antibacterial soap.? Wear comfortable, loose fitting clothing.? - Jewelry must be removed prior to entering the operating room.? Rings and piercings that are not removed may be cut off. - The hospital will not accept responsibility for valuables.? - Please leave all valuables, including medications, at home the day of surgery. If you are going home after surgery, a licensed driver wheelchair must drive you home.? - NO public transportation without another adult if you receive anesthesia. - We recommend that an adult stay with you for 24 hours following discharge. - We also recommend that you do not drive, make important decision, drink alcoholic beverages, or take any drugs that were not prescribed by your health care provider for at least 24 hours after your discharge time. Follow any additional instructions given to you from your surgeon. Telephone instructions given to __Georgina___and asked if any additional questions and then verbalized understanding. Patient advised to call surgeon office or pre surgery nurse liaison [phone] if any additional questions.
[2024-04-27] VITALS (10 sets, daily range): BP systolic 107–149; BP diastolic 62–91; PULSE 60–98; RESP 15–25; TEMP 36.4–36.5; O2SAT 97–100
--- OUTSIDE RECORDS SUMMARY | 2024-04-27 02:32 | XMS_ITS | Clinical Summary ---
Author Organization [facility] Address [address] [place] [address]. [place], [place] [address] [place] [address] Care Team Providers Care Hunter Guide Name Role Phone Colton Merino Primary Care Provider [phone] Allergies No known active allergies Medications multi vitamin/minerals (THERA-M ENHANCED) tablet Take 1 tablet by mouth daily. Active Resolved Problems Problem Noted Date Diagnosed Date Resolved Date No known health problems 10/10/201206/2023 Immunizations Name Administration Dates Next Due Dtap [...] Description 12/26/2024 8:20 AM CDT Office Visit [facility] Family & Internal Medicine - [place] [address] [place] [address] [place] [id number] [place] [address] Health Maintenance Due Date Last Done Comments Cervical Cancer Screening Pap Smear (Age 30 to 64) Every 3 Years 1992 DTaP, Tdap and Td Vaccines (6 - Tdap) 09/03/2006 09/02/2006, 09/23/1996, 04/25/1994, Additional history exists Cervical Cancer Screening Pap with HPV Testing (Age 30 to 64) Every 5 Years 2022 PHQ-2 (Physician [place]) 03/30/2024 01/25/2024 Annual Physical 01/24/2025 01/25/2024 COVID-19 Vaccine ( season) 2025 Postponed from 11/29/2023 (Patient Refused) Cervical Cancer Screening with HPV 01/24/2025 Postponed from 2022 (Going to Outside Clinic) PHQ-2 (Physician [place]) 01/24/2025 01/25/2024 Hepatitis C 01/24/2054 Postponed from [...] patient's age to complete this topic Insurance Care Teams Hunter Guide Relationship Specialty [place] [address] [place] [address] PCP - General Physician Migratory Farm [employer] [facility] 01/20/24
--- OUTSIDE RECORDS SUMMARY | 2024-04-27 02:32 | XMS_ITS | Encounter Summary ---
Author Organization [facility] Address [address] [place] [address]. [place], [place] [id number] [place] [address] Care Team Providers Care Ground Operations Supervisor Name Role Phone Colton Merino Primary Care Provider [phone] Encounter Details Date Type Department Care Team (Late st Contact Info) Description 11/27/2012 Abstract [facility] CONVERSION [address] [place] [address] , Generic ConversionMD Social History [...] Description 12/26/2024 8:20 AM CDT Office Visit [facility] Family & Internal Medicine [facility] [address] [place] [address] [place] [address] [place] [address] documented as of this encounter Visit Diagnoses Not on filedocumented in this encounter Care Teams Ground Operations Supervisor Relationship Specialty [place] [address] [place] [address] PCP - General Physician Skip Hoist Engineer Medical 01/20/24 documented as of this encounter
[2024-04-27] MEDS: ACETAMINOPHEN 500 MG TABLET 1000 MG PO (10:25)
[2024-04-27] MEDS: LACTATED RINGERS 1,000 ML 30 ML IV CONT ×2 (10:30→13:32)
[2024-04-27] MEDS: KETOROLAC 15 MG/ML VIAL (*BKC) IV PUSH (10:30)
--- NOTE | 2024-04-27 11:43 | P.HP_ITS ---
H&P: HPI History of Present Illness Date/Time: 04/27/24 11:43 Chief Complaint: Ovarian cyst Narrative: 33 y/o nulligravida with pelvic pain. Ultrasound exam shows a 7 cm left adnexal cystic structure that has been persistent. The right adnexa is unremarkable. She has a progestin containing IUD. Review of Systems Review of Systems: All systems reviewed & are unremarkable except as noted in HPI and below PMFSH Past Medical History Medical History Screening for thyroid disorder Screening cholesterol level Annual physical exam Physical exam Surgical History Surgical History H/O umbilical hernia repair Open incarcerated umbilical hernia repair w/ mesh on 11/26/21 History of knee surgery Social History Social History Smoking status: Never smoker Second hand tobacco smoke exposure: No Alcohol intake: current Drinks per week: 2 Substance use: never Substance use type: does not use Living arrangements: with family Gender identity (if verbalized by the patient): Female Spiritual care concerns: No Agree to blood products: Yes Meds Home Medications and Allergies Home Medications ?Medication ?Instructions ?Recorded ?Confirmed ?Type twhnkovfmipy-zquo-jdkoe acid 200 200 tablet PO DAILY 08/04/19 04/27/24 History mcg-lutein 137.5 mcg chewable tablet (Adult Multivitamin (w-lutein)) omeprazole 20 mg capsule,delayed 20 mg PO DAILY 12/15/22 04/27/24 History release sertraline 50 mg tablet 50 mg PO DAILY 04/19/24 04/27/24 History Allergies Allergy/AdvReac Type Severity Reaction Status Date / Time No Known Allergies Allergy Verified 04/27/24 10:17 Vital Signs Vital Signs - 24 hr 04/27/24 10:05 Temperature 36.5 C Pulse Rate 63 Respiratory Rate 16 Blood Pressure 149/91 H Pulse Oximetry 100 Oxygen Delivery Room Air Exam Const: Orientation/consciousness: patient oriented x3 Other: Well-developed, well-nourished female in no acute distress. Neck: Thyroid: thyroid normal Lymphatic: no lymphadenopathy noted (in neck, axilla or inguinal nodes) Resp: Effort & Inspection: normal respiratory effort Auscultation: clear to auscultation bilaterally Cardio: Rate: regular rate Rhythm: regular rhythm Heart sounds: S1 normal heart sound present and S2 normal heart sound present GI: Other: ABD: Soft, nontender, nondistended. No guarding or rebound tenderness. No hepatosplenomegaly. : General: Yes no CVA tenderness Other: External genitalia: normal female hair distribution, without lesion. Urethral meatus: no lesion, non prolapsed. Bladder: no mass, nontender Vagina: well-estrogenized, without lesion or discharge. No cystocele or rectocele. Cervix: no lesion or discharge. Uterus: small, anteverted, freely mobile, nontender Adnexa: tenderness to deep palpation. Anus/perineum: no lesions, nontender Back/Spine/Pelvis: Back: no CVA tenderness Skin: General skin exam: normal color and no rashes or lesions noted Neuro: General: patient oriented x3 Extrem: Other: Extremities: nontender with no edema Psych: Mental Status: mental status grossly normal Affect: normal affect Assessment and Plan Assessment and plan (1) Pelvic pain: Code(s): R10.2 - Pelvic and perineal pain Status: Acute Assessment and Plan: A: Left adnexal cyst, persistent, in the context of pelvic pain. P: Offered laparoscopic left ovarian cystectomy, possible left salpingo- oophorectomy. She understands risks of surgery to include risks of anesthesia, risks of pain, infection, bleeding, blood products, thromboembolic phenomena and damage to adjacent structures such as bowel, bladder, ureters, blood vessels and nerves. She understands all these risks and elects to proceed with surgery. (2) Ovarian cyst: Code(s): N83.209 - Unspecified ovarian cyst, unspecified side Status: Acute
--- NOTE | 2024-04-27 11:55 | P.PNAN_ITS ---
Anes - Initial Pre Proc Eval Procedure: Operation Date: 04/27/24 12:00 Proposed Procedures p Laparoscopic Left Ovarian Cystectomy , Possible Left Salpingo-oophorectomy, Removal of Intrauterine Device - Dereje Patterson MD Date/Time: 04/27/24 11:55 Surgeon: Dereje Patterson MD Pre Op Diagnosis: Pelvic Pain, Lt Ovarian Mass Patient Data Age: 33 Gender: F Height: 1.6 m Weight: 59.4 kg Last Vital Signs Temp 36.5 C 04/27/24 10:05 Pulse 63 04/27/24 10:05 Resp 16 04/27/24 10:05 BP 149/91 H 04/27/24 10:05 Pulse Ox 100 04/27/24 10:05 O2 Del Method Room Air 04/27/24 10:05 Allergies Allergy/AdvReac Type Severity Reaction Status Date / Time No Known Allergies Allergy Verified 04/27/24 10:17 Home Medications ?Medication ?Instructions ?Recorded ?Confirmed ?Type hqiudfahkdlf-hzme-rizza acid 200 200 tablet PO DAILY 08/04/19 04/27/24 History mcg-lutein 137.5 mcg chewable tablet (Adult Multivitamin (w-lutein)) omeprazole 20 mg capsule,delayed 20 mg PO DAILY 12/15/22 04/27/24 History release sertraline 50 mg tablet 50 mg PO DAILY 04/19/24 04/27/24 History Patient hx anesthesia problems: none and other (shaking) Family hx anesthesia problems: none and other (shaking) Results Review: All pre-operative results and documents have been reviewed as part of the pre- operative evaluation. [facility] Past Medical History Medical History Screening for thyroid disorder Screening cholesterol level Annual physical exam Physical exam Surgical History Surgical History H/O umbilical hernia repair Open incarcerated umbilical hernia repair w/ mesh on 11/26/21 History of knee surgery Social History Social History Smoking status: Never smoker Second hand tobacco smoke exposure: No Alcohol intake: current Drinks per week: 2 Substance use: never Substance use type: does not use Living arrangements: with family Gender identity (if verbalized by the patient): Female Spiritual care concerns: No Agree to blood products: Yes Anes - Eval Final PreProcedure Day of Procedure 04/27/24 11:55 Patient weight: normal Heart: regular rate and rhythm Lungs: clear to auscultation Airway: Mallampati scale class II Neurological: alert and oriented Last oral intake: >/= 8 hours ASA classification: II Emergent: no Anesthetic plan: proceed Anesthesia type and monitoring: general ETT and standard monitoring Results Review: All pre-operative results and documents have been reviewed as part of the pre- operative evaluation. Informed Consent: The patient's anesthetic plan and its attendant risks and benefits were discussed with the patient/family/POA. Questions were solicited and answers provided to the satisfaction of the patient/family/POA.
[2024-04-27] MEDS: SCOPOLAMINE 1 MG PATCH 1 PATCH TRANSDERM (12:01)
--- NOTE | 2024-04-27 12:03 | WPDHPUPDATE1 ---
History and Physical Update Update Date/Time: 04/27/24 12:03 History and Physical has been reviewed, including an updated exam of the patient. She would like the IUD to be removed as well. Otherwise, there are NO changes in the patient's condition. Risks, benefits, and alternatives have been discussed and questions answered. Patient agrees to proceed with procedure.
[2024-04-27 12:09] LABS: BEDSIDEPREGUCG Negative (Negative)
--- NOTE | 2024-04-27 13:03 | W.PM.PROC2 ---
Procedure Note - Detailed Date of Procedure 04/27/24 Pre-op Diagnosis Pelvic Pain Left ovarian cystic mass Post-op Diagnosis Other (Pelvic pain; chocolate cyst of left ovary; small, hemorrhagic cyst of right ovary) Procedure Performed Laparoscopic left ovarian cystectomy Excisional biopsy of left ovarian cyst wall Removal of IUD Surgeon Dereje Patterson MD Anesthesia General Findings On entry into the abdomen, dark bloody fluid was noted throughout the abdomen and pelvis. The right ovary showed a small, hemorrhagic cyst. The left ovary showed a 5 x 6 cm chocolate cyst. The uterus and Fallopian tubes were unremarkable. Bilateral round and uterosacral ligaments unremarkable. Anterior and posterior cul de sac unremarkable. Vermiform appendix, liver and gallbladder unremarkable. Adhesions between the omentum and anterior abdominal wall noted. The IUD was inspected and was found to be intact at the time of its removal.. Description of Procedure The patient was taken to the operating room where general endotracheal anesthesia was administered. She was prepared and draped in the usual sterile fashion in the dorsal lithotomy position. The bladder was drained with a red rubber catheter. A sterile speculum was inserted into the vagina and the anterior lip of the cervix was grasped with a single-toothed tenaculum. The acorn uterine manipulator was placed. The speculum was withdrawn. Gloves were changed and attention was turned to the abdomen. An incision was made in the left upper quadrant. The abdomen was tented and a 5 millimeter bladeless trocar trocar was advanced under direct laparoscopic visualization. Pneumoperitoneum was administered using carbon dioxide gas. A survey of the pelvis and abdomen yielded the findings noted above. Two additional 5 mm ports were similarly advanced in the midline above the symphysis pubis, and in the left lower quadrant. The left ovarian cyst was incised with needlepoint electrocautery. The cyst wall was excised with the scissors and passed off to be sent to pathology. The pelvis was irrigated copiously with normal saline. Hemostasis was excellent. The trocars were withdrawn and the gas was allowed to escape. The skin incisions were reapproximated using 4-0 Vicryl in interrupted subcuticular fashion. Dermaflex was applied externally. The vaginal instrumentation was withdrawn and the speculum reintroduced. The IUD strings were grasped with a ring forceps. The IUD was easily removed, intact, and discarded. Hemostasis was excellent here as well. Sponge, lap, needle and instrument counts were correct. The patient was awakened and taken to recovery in stable condition. I was present and scrubbed through the entire procedure. Estimated Blood Loss 5 Drains No Packing No Pathology Yes (Left ovarian cyst wall) Complications None Condition Stable Disposition PACU
[2024-04-27] MEDS: fentaNYL CITRATE INJ (*CRX) 100 MCG/2 ML VIAL 25 MCG IV PUSH ×8 (13:19→13:49)
[2024-04-27] MEDS: HYDROmorphone HCL INJ (*CRX) 1 MG/ML SYR 0.5 MG IV PUSH ×2 (13:58→14:03)
[2024-04-27] MEDS: oxyCODONE HCL (*CRX) 5 MG TAB IR PO (14:28)
[2024-04-27] MEDS: ONDANSETRON INJ 4 MG/2 ML VIAL IV PUSH (14:28)
== END 2024-04-27 15:34 | disposition home or self-care (01) ==
PROVIDERS: PCP Physician Assistant; Visit Provider Obstetrics & Gynecology
PROC: (CPT 49320; principal; 2024-04-27 12:00)
DX: N80.122 Deep endometriosis of left ovary (principal); N83.8 Other noninflammatory disorders of ovary, fallopian tube and broad ligament; G89.18 Other acute postprocedural pain; Z30.432 Encounter for removal of intrauterine contraceptive device; Z98.890 Other specified postprocedural states
CPT/HCPCS: 58662; 58301; 88305; A9270; J1100; J1171; J1885; J2003; J2250; J2405; J2704; J3010; J7030; J7120